=== PATIENT | female | born 1940 | race Caucasian/White ===

== ENCOUNTER → 2020-06-14 | Outpatient (CLI) | payer MEDICARE | END | disposition home or self-care (01) | LOC: COVID19 15:00 | PROVIDERS: ATTEND Internal Medicine | DX: U07.1 COVID-19 (principal) ==

== ENCOUNTER 2022-09-24 08:25 | Inpatient (IN) | payer MEDICARE ==
[~2022-09-24] VITALS: Ht 162.6 cm; Wt 61.2 kg
[2022-09-24 08:27] VITALS: BP 114/93
[2022-09-24] MEDS ORDERED: PRAVASTATIN SOD40 MG PO (09:22)
[2022-09-24 09:24] LABS: BASO % 0.3 % (0.0-1.0); EOS # 0.1 10*3/uL (0.0-0.4); LYMPH # 0.7 10*3/uL (1.3-4.4); LYMPH % 8.3 % (27.0-41.0); MEAN CELL VOLUME 94.4 fl (81.0-99.0); MEAN CORPUSCULAR HGB CONC 32.8 g/dl (33.0-37.0); MEAN PLATELET VOLUME 9.8 fl (9.6-12.3); MONO # 0.8 10*3/uL (0.1-1.0); MONO % 9.8 % (3.0-9.0); NEUT # 6.9 10*3/uL (2.3-7.9); PLATELET COUNT AUTOMATED 250 10*3/uL (130-400); RED BLOOD COUNT 4.13 10*6/uL (4.10-5.10); RED CELL DISTRI WIDTH 13.3 % (0-14.5); WHITE BLOOD COUNT 8.6 10*3/uL (4.8-10.8)
[2022-09-24 09:41] LABS: ALKALINE PHOSPHATASE 95 U/L (46-116); BUN 12 mg/dl (9-23); CHLORIDE 107 mmol/L (98-107); POTASSIUM 4.1 mmol/L (3.4-5.1); SGPT/ALT 16 U/L (10-49); TOTAL PROTEIN 6.4 gm/dL (6.0-8.0)
[2022-09-24] MEDS ORDERED: PRESERVISION A1 EAC3 PO (13:15)
[2022-09-24 13:30] VITALS: BP 121/61
[2022-09-24 16:03] VITALS: BP 138/79
[2022-09-24 16:42] VITALS: BP 128/73
[2022-09-24 17:18] VITALS: BP 138/79
[2022-09-24 20:00] VITALS: BP 142/74
[2022-09-25] VITALS: BP 125/80
[2022-09-25 06:52] LABS: BASO % 0.2 % (0.0-1.0); HEMATOCRIT 38.4 % (37.0-47.0); LYMPH # 0.7 10*3/uL (1.3-4.4); LYMPH % 5.4 % (27.0-41.0); MEAN CELL VOLUME 96.7 fl (81.0-99.0); MEAN PLATELET VOLUME 10.5 fl (9.6-12.3); MONO # 0.8 10*3/uL (0.1-1.0); MONO % 6.2 % (3.0-9.0); NEUT # 10.6 10*3/uL (2.3-7.9); NEUT % 87.9 % (47.0-73.0); PLATELET COUNT AUTOMATED 259 10*3/uL (130-400); RED BLOOD COUNT 3.97 10*6/uL (4.10-5.10); RED CELL DISTRI WIDTH 13.6 % (0-14.5); WHITE BLOOD COUNT 12.1 10*3/uL (4.8-10.8)
[2022-09-25 07:29] LABS: ALKALINE PHOSPHATASE 73 U/L (46-116); BUN 14 mg/dl (9-23); CHLORIDE 106 mmol/L (98-107); CHOLESTEROL 173 mg/dL (<200); FREE T4 0.97 ng/dl (0.89-1.76); LDL CHOLESTEROL 91 mg/dL (9-159); SGPT/ALT 12 U/L (10-49); THYROID STIM HORMONE (HS) 0.855 uIU/ml (0.550-4.780); TOTAL PROTEIN 6.1 gm/dL (6.0-8.0); TRIGLYCERIDES 62 mg/dl (<150)
[2022-09-25 07:44] LABS: VITAMIN D, 25-HYDROXY 20.2 ng/mL (30-100)
[2022-09-25 08:00] VITALS: BP 131/70
[2022-09-25 12:00] VITALS: BP 127/58
[2022-09-25 16:00] VITALS: BP 122/65
[2022-09-25 20:00] VITALS: BP 123/63
[2022-09-26] VITALS: BP 146/63
[2022-09-26 06:35] LABS: BASO % 0.4 % (0.0-1.0); EOS # 0.1 10*3/uL (0.0-0.4); HEMATOCRIT 35.9 % (37.0-47.0); LYMPH # 1.2 10*3/uL (1.3-4.4); LYMPH % 11.9 % (27.0-41.0); MEAN CELL VOLUME 96.8 fl (81.0-99.0); MEAN CORPUSCULAR HGB 31.3 pg (27.0-31.0); MEAN CORPUSCULAR HGB CONC 32.3 g/dl (33.0-37.0); MEAN PLATELET VOLUME 9.9 fl (9.6-12.3); MONO # 1.4 10*3/uL (0.1-1.0); MONO % 13.7 % (3.0-9.0); NEUT # 7.6 10*3/uL (2.3-7.9); NEUT % 72.6 % (47.0-73.0); PLATELET COUNT AUTOMATED 232 10*3/uL (130-400); RED BLOOD COUNT 3.71 10*6/uL (4.10-5.10); RED CELL DISTRI WIDTH 13.6 % (0-14.5); WHITE BLOOD COUNT 10.4 10*3/uL (4.8-10.8)
[2022-09-26 08:00] VITALS: BP 124/64
[2022-09-26 12:00] VITALS: BP 122/65
[2022-09-26 16:00] VITALS: BP 132/63
[2022-09-26 20:00] VITALS: BP 123/69
[2022-09-27] VITALS: BP 115/50
[2022-09-27 06:18] LABS: BASO % 0.4 % (0.0-1.0); EOS # 0.2 10*3/uL (0.0-0.4); EOS % 2.3 % (1.0-4.0); HEMATOCRIT 32.1 % (37.0-47.0); LYMPH # 0.8 10*3/uL (1.3-4.4); LYMPH % 10.5 % (27.0-41.0); MEAN CELL VOLUME 97.6 fl (81.0-99.0); MEAN CORPUSCULAR HGB 31.3 pg (27.0-31.0); MEAN CORPUSCULAR HGB CONC 32.1 g/dl (33.0-37.0); MEAN PLATELET VOLUME 10.5 fl (9.6-12.3); MONO # 1.3 10*3/uL (0.1-1.0); MONO % 16.3 % (3.0-9.0); NEUT # 5.6 10*3/uL (2.3-7.9); NEUT % 70.2 % (47.0-73.0); PLATELET COUNT AUTOMATED 198 10*3/uL (130-400); RED BLOOD COUNT 3.29 10*6/uL (4.10-5.10); RED CELL DISTRI WIDTH 13.7 % (0-14.5); WHITE BLOOD COUNT 7.9 10*3/uL (4.8-10.8)
[2022-09-27 08:00] VITALS: BP 106/58
[2022-09-27] MEDS ORDERED: B12 ACTIVE1000 MCG PO (11:01)
[2022-09-27] MEDS ORDERED: ASPIRIN CHILDRE81 MG PO (11:01)
[2022-09-27 12:00] VITALS: BP 109/56
[2022-09-27] MEDS ORDERED: TRAMADOL HCL50 MG PO (13:11)
== END 2022-09-27 13:15 | disposition home or self-care (01) | DRG 522 ==
LOC: ED 08:25 → EDHOLD 09:04 → 4E 09:04
PROVIDERS: Internal Medicine; Orthopaedic Surgery; Registered Nurse; ADMIT Emergency Medicine; ATTEND Emergency Medicine
PROC: 0SRR0JZ Replacement of Right Hip Joint, Femoral Surface with Synthetic Substitute, Open Approach (ICD-10-PCS; principal; 2022-09-24)
PROC: 3E0T3BZ Introduction of Anesthetic Agent into Peripheral Nerves and Plexi, Percutaneous Approach (ICD-10-PCS; 2022-09-24)
DX: S72.031A Displaced midcervical fracture of right femur, initial encounter for closed fracture (principal); S72.001A Fracture of unspecified part of neck of right femur, initial encounter for closed fracture; E53.8 Deficiency of other specified B group vitamins; E78.5 Hyperlipidemia, unspecified; R73.9 Hyperglycemia, unspecified; W18.39XA Other fall on same level, initial encounter; Y93.89 Activity, other specified; Y92.89 Other specified places as the place of occurrence of the external cause; Y99.8 Other external cause status; Z90.710 Acquired absence of both cervix and uterus; Z90.49 Acquired absence of other specified parts of digestive tract

== ENCOUNTER → 2022-10-07 | Outpatient (CLI) | payer MEDICARE ==
[~2022-10-07] MED LIST: ASPIRIN CHILDRE81 MG PO; B12 ACTIVE1000 MCG PO; PRAVASTATIN SOD40 MG PO; PRESERVISION A1 EAC3 PO; TRAMADOL HCL50 MG PO
== END | disposition home or self-care (01) ==
LOC: RAD 12:59
PROVIDERS: ATTEND Orthopaedic Surgery
DX: S72.031A Displaced midcervical fracture of right femur, initial encounter for closed fracture (principal); X58.XXXA Exposure to other specified factors, initial encounter; Y93.89 Activity, other specified; Y92.89 Other specified places as the place of occurrence of the external cause; Y99.8 Other external cause status

== ENCOUNTER → 2022-11-21 | Outpatient (CLI) | payer MEDICARE | END | disposition home or self-care (01) | LOC: ORTHO 01:12 | PROVIDERS: ATTEND Orthopaedic Surgery | DX: S72.031D Displaced midcervical fracture of right femur, subsequent encounter for closed fracture with routine healing (principal); X58.XXXD Exposure to other specified factors, subsequent encounter ==